=== PATIENT | male | born 1955 | race Caucasian/White ===

== ENCOUNTER 2020-02-01 03:42 | Emergency (ER) | payer MEDICARE, OTHER ==
[~2020-02-01] VITALS: Ht 170.2 cm; Wt 91.0 kg
[2020-02-01] MEDS ORDERED: LOSA50TA14 PO (04:01)
--- NOTE | 2020-02-01 04:05 | NUR ---
THIS IS A 64 YO MALE COMING IN FOR RIGHT CALF PAIN FOR THE PAST WEEK, INCREASING OVER THE PAST COUPLE DAYS. PATIENT STATES HE HAD TO GO HOME EARLY FROM WORK YESTERDAY DUE TO PAIN. PAIN IS LOCATED ON LATERAL ASPECT OF CALF, TENDER TO PALPATION, NO REDNESS OR SWELLING NOTED, CSM IN TACT. NO OTHER COMPLAINTS AT THIS TIME, PATIENT IS HYPERTENSIVE, ALL OTHER VS STABLE. SPO2 AND BP MONITORING IN PLACE. CALL LIGHT IN REACH.
--- NOTE | 2020-02-01 04:07 | NUR ---
PATIENT TO XRAY
[2020-02-01 04:37] VITALS: BP 157/69
--- NOTE | 2020-02-01 04:40 | NUR ---
US TECH IN ROOM
--- NOTE | 2020-02-01 05:26 | NUR ---
Patient given discharge instructions and they have confirmed that they understand the instructions. Patient ambulatory with steady gait.
== END 2020-02-01 05:31 | disposition home or self-care (01) ==
LOC: ED 04:34
DX: M79.661 Pain in right lower leg (principal)
CPT/HCPCS: 99284

== ENCOUNTER 2020-02-07 22:24 | Emergency (ER) | payer MEDICARE, OTHER ==
[~2020-02-07] VITALS: Ht 170.2 cm; Wt 92.5 kg
[~2020-02-07 22:24] MED LIST: LOSA50TA14 PO
[2020-02-07 22:36] VITALS: BP 213/103
--- NOTE | 2020-02-08 00:49 | NUR ---
REPORT RECEIVED FROM DOMENIC Marmolejo RN
== END 2020-02-08 01:06 | disposition home or self-care (01) ==
LOC: ED 02-08
DX: M79.661 Pain in right lower leg (principal); M25.571 Pain in right ankle and joints of right foot; M79.671 Pain in right foot; I10 Essential (primary) hypertension
CPT/HCPCS: 99284

== ENCOUNTER 2020-05-12 09:41 | Emergency (ER) | payer MEDICARE, OTHER ==
[~2020-05-12] VITALS: Ht 170.2 cm; Wt 90.8 kg
[2020-05-12 10:31] LABS: BASOPHILS # (AUTO) 0.03 x10^3/uL (0-0.1); BASOPHILS % (AUTO) 1 % (0-1); EOSINOPHILS # (AUTO) 0.12 x10^3/uL (0-0.4); EOSINOPHILS % (AUTO) 2 % (1-7); LYMPHOCYTES # (AUTO) 1.19 x10^3/uL (1-3.4); LYMPHOCYTES % (AUTO) 18 % (22-44); MD NO; MEAN CORPUSCULAR HEMOGLOBIN 30.2 pg (27.5-34.5); MEAN CORPUSCULAR HGB CONC 33.1 g/dL (33.2-36.2); MEAN CORPUSCULAR VOLUME 91.4 fL (81-97); MONOCYTES # (AUTO) 0.42 x10^3/uL (0.2-0.8); MONOCYTES % (AUTO) 6 % (2-9); NEUTROPHILS # (AUTO) 4.96 x10^3/uL (1.8-6.8); NEUTROPHILS % (AUTO) 74 % (42-75); PLATELET COUNT 233 x10^3/uL (130-400); RED BLOOD COUNT 5.18 x10^6/uL (4.38-5.82); RED CELL DISTRIBUTION WIDTH 14.2 % (9.4-14.8)
[2020-05-12 10:41] LABS: ALANINE AMINOTRANSFERASE 23 U/L (12-78); ALBUMIN 3.5 g/dL (3.4-5.0); ANION GAP 4 mmol/L (5-15); CALCIUM 8.9 mg/dL (8.5-10.1); CHLORIDE 108 mmol/L (98-107); CREATININE 1.13 mg/dL (0.7-1.3)
[2020-05-12 10:43] LABS: ALKALINE PHOSPHATASE 108 U/L (45-117); BILIRUBIN,TOTAL 0.4 mg/dL (0.2-1.0); TOTAL PROTEIN 6.8 g/dL (6.4-8.2)
[2020-05-12] MEDS ORDERED: ACETAMINOPHEN 325 MG TABLET PO ONE (11:30)
[2020-05-12 12:00] VITALS: BP 166/84
[2020-05-12 12:19] LABS: MICROSCOPIC NOT IND
== END 2020-05-12 13:23 | disposition home or self-care (01) ==
LOC: ED 10:27
DX: I10 Essential (primary) hypertension (principal); R94.31 Abnormal electrocardiogram [ECG] [EKG]; G43.909 Migraine, unspecified, not intractable, without status migrainosus
CPT/HCPCS: 36415; 80053; 81003; 85025; 93005; 99284